=== PATIENT | female | born 1995 | race African-American/Black ===

== ENCOUNTER 2019-04-15 15:38 | Emergency (ER) | payer OTHER ==
[~2019-04-15] VITALS: Ht 175.3 cm; Wt 81.6 kg
--- NOTE | 2019-04-15 17:31 | NUR ---
Female fourth officer (RALF) accompanied female patient for pelvic exam.
--- NOTE | 2019-04-15 18:59 | NUR ---
Patient discharged to home in stable conditon. Written and verbal after care instructions given. Patient verbalizes understanding of instructions.
--- NOTE | 2019-04-16 09:14 | NUR ---
The ultrasound was done for detection and localization of foreign body. The images were not sent to the radiologist per ER MD's instruction. Claims Adjustor radiology reading.
== END 2019-04-15 19:02 | disposition home or self-care (01) ==
LOC: ER 15:53
DX: T19.2XXA Foreign body in vulva and vagina, initial encounter (principal); F32.9 Major depressive disorder, single episode, unspecified; X58.XXXA Exposure to other specified factors, initial encounter; Y93.89 Activity, other specified; Y92.89 Other specified places as the place of occurrence of the external cause; Y99.8 Other external cause status
CPT/HCPCS: 76857; A4663